=== PATIENT | female | born 1970 | race Caucasian/White ===

== ENCOUNTER 2021-11-16 07:53 | Inpatient (IN) ==
[2021-11-16 08:20] LABS: Hematocrit 41.2 % (35.3-44.9); Hemoglobin 13.4 g/dL (11.5-15.4); Mean Corpuscular HGB Conc 32.5 g/dL (31.6-35.5); Mean Corpuscular Volume 86.2 fL (83.0-100.0); Mean Platelet Volume 9.3 fL (9.4-12.4); Platelet Count 197 K/mcL (140-400); Red Blood Count 4.78 M/mcL (3.82-4.97); Red Cell Distribution Width 14.5 % (11.5-14.5); White Blood Count 5.2 K/mcL (4.3-11.1)
[2021-11-16 08:27] LABS: INR 1.1; Prothrombin Time 11.9 Seconds (9.4-12.1)
[2021-11-16 08:30] LABS: Activated Partial Thrombo Time 36.3 Seconds (26.0-36.0)
[2021-11-16 08:36] LABS: Alanine Aminotransferase 122 Units/L (7-52); Albumin 4.2 g/dL (3.5-5.7); Albumin/Globulin Ratio 1.2 (1.1-2.2); Alkaline Phosphatase 186 Units/L (34-104); Aspartate Amino Transferase 164 Units/L (13-39); BUN/Creatinine Ratio 17 (6-26); Bilirubin,Direct 0.1 mg/dL (0.0-0.2); Bilirubin,Indirect 0.4 mg/dL (0.0-1.0); Bilirubin,Total 0.5 mg/dL (0.3-1.0); Blood Urea Nitrogen 14 mg/dL (6-20); Calcium 8.8 mg/dL (8.6-10.3); Carbon Dioxide 22 mEq/L (23-29); Chloride 101 mEq/L (98-107); Globulin 3.5 g/dL (2.4-3.5); Glucose 222 mg/dL (70-105); Osmolality,Calculated 283 (280-300); Potassium 3.5 mEq/L (3.5-5.1); Sodium 133 mEq/L (136-145); Total Protein 7.7 g/dL (6.4-8.9); Troponin I 0.03 ng/mL (< 0.04); eGFR For African Americans > 60 (> 60); eGFR For Non-African Americans > 60 (> 60)
[2021-11-16 09:07] LABS: Influenza A PCR Negative (Negative); Influenza B PCR Negative (Negative); Resp. Syncytial Virus PCR Negative (Negative)
[2021-11-16 09:10] LABS: SARS-CoV-2 by PCR (In House) Positive (Negative)
[2021-11-16 09:16] LABS: Basophils # 0.1 K/mcL (0.0-0.2); Lymphocytes # 1.1 K/mcL (0.6-4.6); Monocytes # 0.4 K/mcL (0.0-1.3); Neutrophils # 3.5 K/mcL (1.6-8.9)
[2021-11-16 09:17] LABS: Anisocytosis 1+ (Not Present); Platelet Estimate Normal (Normal)
[2021-11-16 09:19] LABS: Basophilic Stippling 1+ (Not Present)
[2021-11-16 09:20] LABS: Reactive Lymphocytes Present (Not Present)
[2021-11-16] MEDS ORDERED: Isovue-370 500 ML BOTTLE IVP ONE (09:49)
[2021-11-16] MEDS ORDERED: Dexamethasone Sodium Phos/PF 10 MG/ML VIAL IVP ONE (10:52)
[2021-11-16] MEDS ORDERED: D5% in Water 1,000 ML IVC PRN (11:05)
[2021-11-16] MEDS ORDERED: Dextrose Gel 15 GM/37.5 ML TUBE PO PRN ×2 (11:05)
[2021-11-16] MEDS ORDERED: *HR* Dextrose 50 % in Water (Syg) 50 ML SYRINGE IVP PRN (11:05)
[2021-11-16] MEDS ORDERED: Naloxone 0.4 MG/ML INJ IVP PRN (11:06)
[2021-11-16] MEDS ORDERED: Ondansetron 4 MG/2 ML VIAL IVP PRN (11:06)
[2021-11-16] MEDS ORDERED: SUMAtriptan succinate 50 MG TABLET PO PRN (11:48)
[2021-11-16 11:58] LABS: C-Reactive Protein 32 mg/L (Less than 10); Lactate Dehydrogenase 367 Units/L (140-271)
[2021-11-16] MEDS ORDERED: Remdesivir 200 MG in 0.9 % Sodium Chloride 100 ML IVPB ONE (13:00)
[2021-11-16] MEDS: Insulin LISPRO 300 UNITS/3 ML VIAL SUBQ SCH ×3 (14:24→22:06)
[2021-11-16] MEDS: Ipratropium 1 PUFF INHALER IH SCH ×4 (14:24→23:38)
[2021-11-16 17:16] LABS: Ferritin 771 ng/mL (10-120)
[2021-11-16] MEDS: levETIRAcetam 250 MG TABLET PO SCH (22:05)
[2021-11-16] MEDS: Topiramate 100 MG TABLET PO SCH (22:05)
[2021-11-16] MEDS: Acetaminophen 325 MG TABLET PO PRN (22:13)
[2021-11-17 01:47] LABS: Hemoglobin 12.6 g/dL (11.5-15.4); Mean Corpuscular HGB Conc 32.3 g/dL (31.6-35.5); Mean Corpuscular Hemoglobin 28.1 pg (28.0-33.3); Mean Corpuscular Volume 86.9 fL (83.0-100.0); Mean Platelet Volume 9.4 fL (9.4-12.4); Platelet Count 210 K/mcL (140-400); Red Blood Count 4.49 M/mcL (3.82-4.97); Red Cell Distribution Width 14.5 % (11.5-14.5); White Blood Count 5.8 K/mcL (4.3-11.1)
[2021-11-17 02:07] LABS: Alanine Aminotransferase 86 Units/L (7-52); Albumin 3.8 g/dL (3.5-5.7); Albumin/Globulin Ratio 1.1 (1.1-2.2); Alkaline Phosphatase 156 Units/L (34-104); Aspartate Amino Transferase 87 Units/L (13-39); BUN/Creatinine Ratio 21 (6-26); Bilirubin,Total 0.5 mg/dL (0.3-1.0); Blood Urea Nitrogen 14 mg/dL (6-20); Calcium 8.7 mg/dL (8.6-10.3); Carbon Dioxide 20 mEq/L (23-29); Chloride 102 mEq/L (98-107); Globulin 3.4 g/dL (2.4-3.5); Glucose 189 mg/dL (70-105); Osmolality,Calculated 282 (280-300); Potassium 3.3 mEq/L (3.5-5.1); Sodium 133 mEq/L (136-145); Total Protein 7.2 g/dL (6.4-8.9); eGFR For African Americans > 60 (> 60); eGFR For Non-African Americans > 60 (> 60)
[2021-11-17] MEDS: Ipratropium 1 PUFF INHALER IH SCH ×6 (03:33→23:14)
[2021-11-17] MEDS: Acetaminophen 325 MG TABLET PO PRN ×2 (04:25→13:06)
[2021-11-17] MEDS: Benzonatate 100 MG CAPSULE PO PRN ×4 (04:25→21:36)
[2021-11-17] MEDS: *HR* Enoxaparin 40 MG/0.4 ML SYRINGE SQ SCH (06:00)
[2021-11-17] MEDS: Insulin LISPRO 300 UNITS/3 ML VIAL SUBQ SCH ×5 (09:53→21:40)
[2021-11-17] MEDS: amLODIPine 5 MG TABLET PO SCH (09:54)
[2021-11-17] MEDS: Topiramate 100 MG TABLET PO SCH ×2 (09:54→21:36)
[2021-11-17] MEDS: PARoxetine 20 MG TABLET PO SCH (09:55)
[2021-11-17] MEDS: levETIRAcetam 250 MG TABLET PO SCH ×2 (09:55→21:34)
[2021-11-17 11:08] LABS: Lymphocytes # 2.2 K/mcL (0.6-4.6); Monocytes # 0.1 K/mcL (0.0-1.3); Neutrophils # 3.5 K/mcL (1.6-8.9)
[2021-11-17 11:09] LABS: Basophilic Stippling 1+ (Not Present); Platelet Estimate Normal (Normal); Reactive Lymphocytes Present (Not Present)
[2021-11-17] MEDS ORDERED: Potassium Chloride Elixir 20 MEQ/15 ML UDC PO ONE (12:01)
[2021-11-17] MEDS: Furosemide 20 MG TABLET PO SCH (13:06)
[2021-11-17] MEDS: Remdesivir 100 MG in 0.9 % Sodium Chloride 100 ML IVPB SCH (13:09)
[2021-11-17] MEDS: hydrOXYzine pamoate 25 MG CAPSULE PO PRN ×2 (13:11→21:36)
[2021-11-17 13:34] LABS: Magnesium 1.8 mg/dL (1.6-2.6); Phosphorous 2.5 mg/dL (2.7-4.5)
[2021-11-17] MEDS: Insulin DETEMIR 100 UNIT/ML X5UNITS SUBQ SCH ×2 (17:10→18:04)
[2021-11-17] MEDS: Nystatin POWDER 30 GM BOTTLE TP SCH (21:36)
[2021-11-18] MEDS: Ipratropium 1 PUFF INHALER IH SCH ×7 (03:30→23:46)
[2021-11-18] MEDS: *HR* Enoxaparin 40 MG/0.4 ML SYRINGE SQ SCH (05:58)
[2021-11-18] MEDS: Acetaminophen 325 MG TABLET PO PRN (06:07)
[2021-11-18 06:38] LABS: Hematocrit 39.7 % (35.3-44.9); Hemoglobin 12.8 g/dL (11.5-15.4); Mean Corpuscular HGB Conc 32.2 g/dL (31.6-35.5); Mean Corpuscular Hemoglobin 28.2 pg (28.0-33.3); Mean Corpuscular Volume 87.4 fL (83.0-100.0); Mean Platelet Volume 9.4 fL (9.4-12.4); Platelet Count 263 K/mcL (140-400); Red Blood Count 4.54 M/mcL (3.82-4.97); Red Cell Distribution Width 14.4 % (11.5-14.5); White Blood Count 6.3 K/mcL (4.3-11.1)
[2021-11-18 07:00] LABS: BUN/Creatinine Ratio 26 (6-26); Blood Urea Nitrogen 19 mg/dL (6-20); Calcium 9.1 mg/dL (8.6-10.3); Carbon Dioxide 22 mEq/L (23-29); Chloride 104 mEq/L (98-107); Glucose 147 mg/dL (70-105); Osmolality,Calculated 287 (280-300); Potassium 3.3 mEq/L (3.5-5.1); Sodium 136 mEq/L (136-145); eGFR For African Americans > 60 (> 60); eGFR For Non-African Americans > 60 (> 60)
[2021-11-18] MEDS: amLODIPine 5 MG TABLET PO SCH (09:32)
[2021-11-18] MEDS: levETIRAcetam 250 MG TABLET PO SCH ×2 (09:32→20:57)
[2021-11-18] MEDS: Furosemide 20 MG TABLET PO SCH (09:32)
[2021-11-18] MEDS: Nystatin POWDER 30 GM BOTTLE TP SCH ×2 (09:33→15:35)
[2021-11-18] MEDS: PARoxetine 20 MG TABLET PO SCH (09:33)
[2021-11-18] MEDS: Insulin LISPRO 300 UNITS/3 ML VIAL SUBQ SCH ×4 (09:36→18:26)
[2021-11-18] MEDS: Insulin DETEMIR 100 UNIT/ML X5UNITS SUBQ SCH ×2 (09:38→20:58)
[2021-11-18] MEDS: Topiramate 100 MG TABLET PO SCH ×2 (09:45→20:59)
[2021-11-18 09:54] LABS: Estimated Average Glucose 226 mg/dl; Hemoglobin A1C 9.5 %
[2021-11-18] MEDS: Benzonatate 100 MG CAPSULE PO PRN ×3 (10:04→21:09)
[2021-11-18] MEDS: Remdesivir 100 MG in 0.9 % Sodium Chloride 100 ML IVPB SCH (14:12)
[2021-11-19] MEDS: Nystatin POWDER 30 GM BOTTLE TP SCH ×3 (00:35→16:20)
[2021-11-19] MEDS: Ipratropium 1 PUFF INHALER IH SCH ×4 (03:42→15:41)
[2021-11-19] MEDS: *HR* Enoxaparin 40 MG/0.4 ML SYRINGE SQ SCH (05:58)
[2021-11-19 06:18] LABS: BUN/Creatinine Ratio 25 (6-26); Blood Urea Nitrogen 18 mg/dL (6-20); Calcium 9.2 mg/dL (8.6-10.3); Carbon Dioxide 21 mEq/L (23-29); Chloride 108 mEq/L (98-107); Glucose 122 mg/dL (70-105); Osmolality,Calculated 281 (280-300); Potassium 3.3 mEq/L (3.5-5.1); Sodium 134 mEq/L (136-145); eGFR For African Americans > 60 (> 60); eGFR For Non-African Americans > 60 (> 60)
[2021-11-19 07:10] VITALS: TEMP 98.6
[2021-11-19] MEDS: amLODIPine 5 MG TABLET PO SCH (10:04)
[2021-11-19] MEDS: PARoxetine 20 MG TABLET PO SCH (10:05)
[2021-11-19] MEDS: Topiramate 100 MG TABLET PO SCH (10:06)
[2021-11-19] MEDS: Furosemide 20 MG TABLET PO SCH (10:06)
[2021-11-19] MEDS: Benzonatate 100 MG CAPSULE PO PRN (10:06)
[2021-11-19] MEDS: levETIRAcetam 250 MG TABLET PO SCH (10:06)
[2021-11-19] MEDS: Insulin LISPRO 300 UNITS/3 ML VIAL SUBQ SCH ×2 (10:43→16:14)
[2021-11-19 10:46] VITALS: BP 100/57; PULSE 71
[2021-11-19] MEDS: Insulin DETEMIR 100 UNIT/ML X5UNITS SUBQ SCH (11:38)
[2021-11-19 15:45] VITALS: O2SAT 95
[2021-11-19] MEDS: Remdesivir 100 MG in 0.9 % Sodium Chloride 100 ML IVPB SCH (16:20)
== END 2021-11-19 17:59 | disposition home or self-care (01) | DRG 177 ==
LOC: EMEROOARM 07:53 → SUATTDRO 16:21 → 3ANU 16:21
PROVIDERS: ADMIT Family Medicine; ATTEND Internal Medicine

== ENCOUNTER 2021-12-22 09:45 | Observation (INO) ==
[2021-12-22] MEDS ORDERED: 0.9 % Sodium Chloride 1,000 ML IVC ONE (09:56)
[2021-12-22] MEDS ORDERED: Ondansetron 4 MG/2 ML VIAL IVP ONE (10:04)
[2021-12-22] MEDS ORDERED: Morphine Sulfate 2 MG/ML SYRINGE IVP ONE (10:04)
[2021-12-22 10:44] LABS: Bilirubin,Urine Negative (Negative); Blood,Urine Small (Negative); Clarity,Urine Clear (Clear); Color,Urine Colorless (Yellow); Glucose,Urine (UA) >=1000 mg/dL (Normal); Ketones,Urine 20 mg/dL (Negative); Leukocyte Esterase,Urine Negative (Negative); Nitrite,Urine Negative (Negative); Protein,Urine 30 mg/dL (Neg-Trace); Specific Gravity,Urine > 1.030 (1.010-1.025); Squamous Epithelial Cell,Urine Moderate per hpf (None-Few); Urobilinogen,Urine Normal (Normal); WBC,Urine 0-3 per hpf (0-3)
[2021-12-22 11:16] LABS: Basophils # 0.1 K/mcL (0.0-0.2); Basophils % 0.5 %; Hematocrit 30.4 % (35.3-44.9); Hemoglobin 10.5 g/dL (11.5-15.4); Immature Granulocytes % 0.4 % (0-4); Lymphocytes # 1.3 K/mcL (0.6-4.6); Lymphocytes % 9.3 %; Mean Corpuscular HGB Conc 34.5 g/dL (31.6-35.5); Mean Corpuscular Hemoglobin 29.2 pg (28.0-33.3); Mean Corpuscular Volume 84.4 fL (83.0-100.0); Mean Platelet Volume 10.3 fL (9.4-12.4); Monocytes # 0.6 K/mcL (0.0-1.3); Monocytes % 4.1 %; Platelet Count 268 K/mcL (140-400); Red Cell Distribution Width 14.8 % (11.5-14.5); Segmented Neutrophils % 85.7 %
[2021-12-22 11:32] LABS: Alanine Aminotransferase 65 Units/L (7-52); Albumin 4.2 g/dL (3.5-5.7); Albumin/Globulin Ratio 1.3 (1.1-2.2); Alkaline Phosphatase 166 Units/L (34-104); Amylase 16 Units/L (29-103); Aspartate Amino Transferase 40 Units/L (13-39); BUN/Creatinine Ratio 15 (6-26); Bilirubin,Total 0.9 mg/dL (0.3-1.0); Blood Urea Nitrogen 13 mg/dL (6-20); Carbon Dioxide 18 mEq/L (23-29); Chloride 95 mEq/L (98-107); Globulin 3.2 g/dL (2.4-3.5); Glucose 486 mg/dL (70-105); Lipase 29 Units/L (11-82); Osmolality,Calculated 286 (280-300); Sodium 127 mEq/L (136-145); Total Protein 7.4 g/dL (6.4-8.9); Troponin I < 0.03 ng/mL (< 0.04); eGFR For African Americans > 60 (> 60); eGFR For Non-African Americans > 60 (> 60)
[2021-12-22] MEDS ORDERED: Isovue-370 500 ML BOTTLE IVP ONE (11:36)
[2021-12-22] MEDS ORDERED: *HR* HYDROmorphone (PF) 1 MG/ML SYRINGE IVP ONE (12:37)
[2021-12-22 13:20] LABS: Influenza A PCR Negative (Negative); Influenza B PCR Negative (Negative); Resp. Syncytial Virus PCR Negative (Negative)
[2021-12-22] MEDS ORDERED: cefTRIAXone 1,000 MG in Water for inj. (sterile) 10 ML IVP ONE (13:29)
[2021-12-22 13:45] LABS: SARS-CoV-2 by PCR (In House) Negative (Negative)
[2021-12-22] MEDS ORDERED: Melatonin 3 MG TABLET PO PRN (14:09)
[2021-12-22] MEDS ORDERED: Ondansetron 4 MG/2 ML VIAL IVP PRN (14:09)
[2021-12-22] MEDS ORDERED: Naloxone 0.4 MG/ML INJ IVP PRN (14:09)
[2021-12-22] MEDS: Morphine Sulfate 2 MG/ML SYRINGE IVP PRN (15:59)
[2021-12-22] MEDS: *HR* OxyCODONE/APAP 5/325 TABLET PO PRN ×2 (16:53→22:14)
[2021-12-22] MEDS ORDERED: Dextrose Gel 15 GM/37.5 ML TUBE PO PRN ×2 (17:36)
[2021-12-22] MEDS ORDERED: D5% in Water 1,000 ML IVC PRN (17:36)
[2021-12-22] MEDS ORDERED: *HR* Dextrose 50 % in Water (Syg) 50 ML SYRINGE IVP PRN (17:36)
[2021-12-22] MEDS ORDERED: 0.9 % Sodium Chloride 1,000 ML IV ONE (17:38)
[2021-12-22] MEDS: 0.9 % Sodium Chloride 1,000 ML IVC SCH (18:32)
[2021-12-22] MEDS: Insulin LISPRO 300 UNITS/3 ML VIAL SUBQ SCH (18:33)
[2021-12-22] MEDS ORDERED: Insulin DETEMIR 100 UNIT/ML X5UNITS SUBQ SCH (21:00)
[2021-12-22] MEDS: levETIRAcetam 250 MG TABLET PO SCH (22:13)
[2021-12-22] MEDS: Gabapentin 400 MG CAPSULE PO SCH (22:14)
[2021-12-22] MEDS: Topiramate 100 MG TABLET PO SCH (22:14)
[2021-12-23] MEDS: Morphine Sulfate 2 MG/ML SYRINGE IVP PRN (04:07)
[2021-12-23] MEDS: 0.9 % Sodium Chloride 1,000 ML IVC SCH ×2 (04:42→10:42)
[2021-12-23] MEDS: *HR* OxyCODONE/APAP 5/325 TABLET PO PRN ×4 (04:55→20:47)
[2021-12-23 05:28] LABS: Basophils # 0.1 K/mcL (0.0-0.2); Basophils % 0.8 %; Eosinophils # 0.1 K/mcL (0.0-0.6); Eosinophils % 0.8 %; Hematocrit 25.1 % (35.3-44.9); Hemoglobin 8.3 g/dL (11.5-15.4); Immature Granulocytes % 0.5 % (0-4); Lymphocytes # 1.5 K/mcL (0.6-4.6); Lymphocytes % 19.6 %; Mean Corpuscular HGB Conc 33.1 g/dL (31.6-35.5); Mean Corpuscular Hemoglobin 29.2 pg (28.0-33.3); Mean Corpuscular Volume 88.4 fL (83.0-100.0); Mean Platelet Volume 9.8 fL (9.4-12.4); Monocytes # 0.5 K/mcL (0.0-1.3); Monocytes % 6.1 %; Neutrophils # 5.6 K/mcL (1.6-8.9); Platelet Count 186 K/mcL (140-400); Red Blood Count 2.84 M/mcL (3.82-4.97); Red Cell Distribution Width 15.2 % (11.5-14.5); Segmented Neutrophils % 72.2 %; White Blood Count 7.8 K/mcL (4.3-11.1)
[2021-12-23 05:49] LABS: BUN/Creatinine Ratio 19 (6-26); Blood Urea Nitrogen 13 mg/dL (6-20); Calcium 8.5 mg/dL (8.6-10.3); Carbon Dioxide 24 mEq/L (23-29); Chloride 102 mEq/L (98-107); Glucose 314 mg/dL (70-105); Magnesium 1.6 mg/dL (1.6-2.6); Osmolality,Calculated 282 (280-300); Potassium 3.2 mEq/L (3.5-5.1); Sodium 130 mEq/L (136-145); eGFR For African Americans > 60 (> 60); eGFR For Non-African Americans > 60 (> 60)
[2021-12-23 06:30] LABS: Estimated Average Glucose 266 mg/dl; Hemoglobin A1C 10.9 %
[2021-12-23] MEDS: levETIRAcetam 250 MG TABLET PO SCH ×2 (09:07→20:37)
[2021-12-23] MEDS: PARoxetine 30 MG TABLET PO SCH (09:07)
[2021-12-23] MEDS: Gabapentin 400 MG CAPSULE PO SCH ×4 (09:07→20:36)
[2021-12-23] MEDS: Topiramate 100 MG TABLET PO SCH ×2 (09:08→20:36)
[2021-12-23] MEDS: amLODIPine 5 MG TABLET PO SCH (09:08)
[2021-12-23] MEDS: Insulin LISPRO 300 UNITS/3 ML VIAL SUBQ SCH ×3 (09:10→17:48)
[2021-12-23] MEDS: SUMAtriptan succinate 50 MG TABLET PO PRN (09:20)
[2021-12-23 09:35] LABS: INR 1.1; Prothrombin Time 12.5 Seconds (9.4-12.1)
[2021-12-23 09:38] LABS: Activated Partial Thrombo Time 31.5 Seconds (26.0-36.0)
[2021-12-23] MEDS: Ergocalciferol (VIT D2) 50,000 UNIT (1.25MG) CAP PO SCH (10:42)
[2021-12-23 12:43] LABS: Hematocrit 26.3 % (35.3-44.9); Hemoglobin 8.8 g/dL (11.5-15.4)
[2021-12-23 18:49] LABS: Hematocrit 26.4 % (35.3-44.9); Hemoglobin 8.3 g/dL (11.5-15.4)
[2021-12-23] MEDS ORDERED: Insulin DETEMIR 100 UNIT/ML X5UNITS SUBQ SCH (21:00)
[2021-12-24] MEDS: SUMAtriptan succinate 50 MG TABLET PO PRN ×2 (03:33→16:09)
[2021-12-24] MEDS: Topiramate 100 MG TABLET PO SCH ×2 (08:57→21:02)
[2021-12-24] MEDS: levETIRAcetam 250 MG TABLET PO SCH ×2 (08:58→21:02)
[2021-12-24] MEDS: amLODIPine 5 MG TABLET PO SCH (08:58)
[2021-12-24] MEDS: Gabapentin 400 MG CAPSULE PO SCH ×4 (08:58→21:03)
[2021-12-24] MEDS: PARoxetine 30 MG TABLET PO SCH (08:58)
[2021-12-24] MEDS: *HR* OxyCODONE/APAP 5/325 TABLET PO PRN ×2 (08:58→17:23)
[2021-12-24] MEDS: Insulin LISPRO 300 UNITS/3 ML VIAL SUBQ SCH ×4 (09:02→17:25)
[2021-12-24 09:29] LABS: Hematocrit 26.6 % (35.3-44.9); Hemoglobin 8.6 g/dL (11.5-15.4); Immature Granulocytes % 0.7 % (0-4); Lymphocytes % 25.2 %; Mean Corpuscular HGB Conc 32.3 g/dL (31.6-35.5); Mean Corpuscular Hemoglobin 28.6 pg (28.0-33.3); Mean Corpuscular Volume 88.4 fL (83.0-100.0); Mean Platelet Volume 10.3 fL (9.4-12.4); Monocytes % 4.5 %; Platelet Count 223 K/mcL (140-400); Red Blood Count 3.01 M/mcL (3.82-4.97); Red Cell Distribution Width 15.1 % (11.5-14.5); Segmented Neutrophils % 67.6 %; White Blood Count 7.5 K/mcL (4.3-11.1)
[2021-12-24 09:30] LABS: Basophils # 0.1 K/mcL (0.0-0.2); Basophils % 0.7 %; Eosinophils # 0.1 K/mcL (0.0-0.6); Eosinophils % 1.3 %; Lymphocytes # 1.9 K/mcL (0.6-4.6); Monocytes # 0.3 K/mcL (0.0-1.3); Neutrophils # 5.1 K/mcL (1.6-8.9)
[2021-12-24 09:48] LABS: Alanine Aminotransferase 40 Units/L (7-52); Albumin/Globulin Ratio 1.2 (1.1-2.2); Alkaline Phosphatase 185 Units/L (34-104); Aspartate Amino Transferase 24 Units/L (13-39); BUN/Creatinine Ratio 17 (6-26); Bilirubin,Total 0.5 mg/dL (0.3-1.0); Blood Urea Nitrogen 11 mg/dL (6-20); Calcium 9.5 mg/dL (8.6-10.3); Carbon Dioxide 21 mEq/L (23-29); Chloride 103 mEq/L (98-107); Globulin 3.3 g/dL (2.4-3.5); Glucose 276 mg/dL (70-105); Osmolality,Calculated 281 (280-300); Potassium 3.6 mEq/L (3.5-5.1); Sodium 131 mEq/L (136-145); Total Protein 7.3 g/dL (6.4-8.9); eGFR For African Americans > 60 (> 60); eGFR For Non-African Americans > 60 (> 60)
[2021-12-24] MEDS ORDERED: Insulin LISPRO 300 UNITS/3 ML VIAL SUBQ SCH (12:00)
[2021-12-24] MEDS ORDERED: Isovue-370 500 ML BOTTLE IVP ONE (12:18)
[2021-12-24] MEDS: Insulin DETEMIR 100 UNIT/ML X5UNITS SUBQ SCH (21:03)
[2021-12-25] MEDS: SUMAtriptan succinate 50 MG TABLET PO PRN (03:56)
[2021-12-25 04:20] LABS: Basophils # 0.1 K/mcL (0.0-0.2); Basophils % 0.7 %; Eosinophils # 0.2 K/mcL (0.0-0.6); Eosinophils % 2.3 %; Hematocrit 25.3 % (35.3-44.9); Hemoglobin 8.2 g/dL (11.5-15.4); Lymphocytes # 1.7 K/mcL (0.6-4.6); Lymphocytes % 24.2 %; Mean Corpuscular HGB Conc 32.4 g/dL (31.6-35.5); Mean Corpuscular Hemoglobin 28.6 pg (28.0-33.3); Mean Corpuscular Volume 88.2 fL (83.0-100.0); Mean Platelet Volume 9.9 fL (9.4-12.4); Monocytes # 0.4 K/mcL (0.0-1.3); Monocytes % 5.8 %; Neutrophils # 4.6 K/mcL (1.6-8.9); Platelet Count 224 K/mcL (140-400); Red Blood Count 2.87 M/mcL (3.82-4.97); Red Cell Distribution Width 15.1 % (11.5-14.5); White Blood Count 6.9 K/mcL (4.3-11.1)
[2021-12-25 04:41] LABS: BUN/Creatinine Ratio 22 (6-26); Blood Urea Nitrogen 14 mg/dL (6-20); Calcium 8.9 mg/dL (8.6-10.3); Carbon Dioxide 19 mEq/L (23-29); Chloride 102 mEq/L (98-107); Glucose 264 mg/dL (70-105); Osmolality,Calculated 286 (280-300); Potassium 3.4 mEq/L (3.5-5.1); Sodium 133 mEq/L (136-145); eGFR For African Americans > 60 (> 60); eGFR For Non-African Americans > 60 (> 60)
[2021-12-25] MEDS: Insulin LISPRO 300 UNITS/3 ML VIAL SUBQ SCH ×6 (08:33→17:27)
[2021-12-25] MEDS: Gabapentin 400 MG CAPSULE PO SCH ×4 (08:34→20:27)
[2021-12-25] MEDS: Insulin DETEMIR 100 UNIT/ML X5UNITS SUBQ SCH ×2 (08:34→20:31)
[2021-12-25] MEDS: amLODIPine 5 MG TABLET PO SCH (08:34)
[2021-12-25] MEDS: PARoxetine 30 MG TABLET PO SCH (08:34)
[2021-12-25] MEDS: *HR* OxyCODONE/APAP 5/325 TABLET PO PRN ×2 (08:35→20:27)
[2021-12-25] MEDS: levETIRAcetam 250 MG TABLET PO SCH ×2 (08:35→20:26)
[2021-12-25] MEDS: Topiramate 100 MG TABLET PO SCH ×2 (08:35→20:27)
[2021-12-25 22:57] VITALS: O2SAT 94
[2021-12-26 03:25] VITALS: BP 117/72; PULSE 101; TEMP 98.5
[2021-12-26] MEDS: Insulin LISPRO 300 UNITS/3 ML VIAL SUBQ SCH ×4 (08:54→12:44)
[2021-12-26] MEDS: Topiramate 100 MG TABLET PO SCH (08:55)
[2021-12-26] MEDS: amLODIPine 5 MG TABLET PO SCH (08:55)
[2021-12-26] MEDS: Insulin DETEMIR 100 UNIT/ML X5UNITS SUBQ SCH (08:55)
[2021-12-26] MEDS: levETIRAcetam 250 MG TABLET PO SCH (08:55)
[2021-12-26] MEDS: Gabapentin 400 MG CAPSULE PO SCH ×2 (08:56→12:44)
[2021-12-26] MEDS: PARoxetine 30 MG TABLET PO SCH (08:56)
[2021-12-26] MEDS: *HR* OxyCODONE/APAP 5/325 TABLET PO PRN (09:07)
[2021-12-26] MEDS: Ergocalciferol (VIT D2) 50,000 UNIT (1.25MG) CAP PO SCH (09:07)
[2021-12-26 09:59] LABS: Basophils # 0.1 K/mcL (0.0-0.2); Basophils % 0.6 %; Eosinophils # 0.2 K/mcL (0.0-0.6); Eosinophils % 1.6 %; Hematocrit 27.3 % (35.3-44.9); Hemoglobin 8.7 g/dL (11.5-15.4); Immature Granulocytes % 0.8 % (0-4); Lymphocytes % 20.6 %; Mean Corpuscular HGB Conc 31.9 g/dL (31.6-35.5); Mean Corpuscular Hemoglobin 28.5 pg (28.0-33.3); Mean Corpuscular Volume 89.5 fL (83.0-100.0); Mean Platelet Volume 9.7 fL (9.4-12.4); Monocytes # 0.6 K/mcL (0.0-1.3); Monocytes % 6.4 %; Neutrophils # 6.7 K/mcL (1.6-8.9); Platelet Count 298 K/mcL (140-400); Red Blood Count 3.05 M/mcL (3.82-4.97); Red Cell Distribution Width 15.1 % (11.5-14.5); White Blood Count 9.6 K/mcL (4.3-11.1)
[2021-12-26 10:24] LABS: BUN/Creatinine Ratio 19 (6-26); Blood Urea Nitrogen 14 mg/dL (6-20); Calcium 9.5 mg/dL (8.6-10.3); Carbon Dioxide 24 mEq/L (23-29); Chloride 101 mEq/L (98-107); Glucose 240 mg/dL (70-105); Osmolality,Calculated 284 (280-300); Potassium 3.5 mEq/L (3.5-5.1); Sodium 133 mEq/L (136-145); eGFR For African Americans > 60 (> 60); eGFR For Non-African Americans > 60 (> 60)
== END 2021-12-26 15:20 | disposition home or self-care (01) ==
LOC: 3ANU 09:45 → EMEROOARM 09:45 → SUATTDRO 13:58 → 3ANU 15:02
PROVIDERS: ADMIT Hospitalist; ATTEND Hospitalist